=== PATIENT | female | born 1995 | race Caucasian/White ===

== ENCOUNTER → 2021-09-27 | Outpatient (CLI) | payer OTHER ==
[~2021-09-27] MED LIST: AUGMENTIN 875875 MG PO; MICROGESTIN PO; Motrin,Rufen800 MG PO
== END | disposition home or self-care (01) ==
LOC: COVID19 15:02
PROVIDERS: ATTEND Internal Medicine
DX: Z20.822 Contact with and (suspected) exposure to COVID-19 (principal)